=== PATIENT | female | born 1965 | race Caucasian/White ===

== ENCOUNTER 2022-03-24 18:52 | Emergency (ER) | payer BC ==
[~2022-03-24] VITALS: Ht 167.6 cm; Wt 77.1 kg
[2022-03-24] MEDS ORDERED: HYDROCODONE/APAP 5/325MG TABLET PO ONE (19:30)
[2022-03-24] MEDS ORDERED: KETOROLAC TROMETHAMINE INJ 30 MG/ML VIAL IM ONE (19:30)
[2022-03-24] MEDS ORDERED: HYDROCODONE/APAP 5/325MG TABLET ONE (20:23)
[2022-03-24] MEDS ORDERED: KETOROLAC TROMETHAMINE INJ 30 MG/ML VIAL ONE (20:23)
[2022-03-24] MEDS ORDERED: HYDR-3972 PO (21:18)
[2022-03-24] MEDS ORDERED: IBUP-1957 PO (21:18)
--- NOTE | 2022-03-24 21:53 | NUR ---
Patient discharged to home in stable condition. Written and verbal after care instructions given. Patient verbalizes understanding of instruction.
[2022-03-24 21:54] VITALS: BP 127/81
== END 2022-03-24 21:54 | disposition home or self-care (01) ==
LOC: ER 18:54
DX: S22.31XA Fracture of one rib, right side, initial encounter for closed fracture (principal); S60.811A Abrasion of right wrist, initial encounter; S90.812A Abrasion, left foot, initial encounter; V89.2XXA Person injured in unspecified motor-vehicle accident, traffic, initial encounter; Y93.89 Activity, other specified; Y92.89 Other specified places as the place of occurrence of the external cause; Y99.8 Other external cause status
CPT/HCPCS: 99283; 96372; 71100; J1885